=== PATIENT | male | born 1940 | race Two or more races ===

== ENCOUNTER 2016-12-18 03:34 | Emergency (ER) | payer OTHER, BC ==
[2016-12-18 03:52] VITALS: BP 135/76; PULSE 75; TEMP 97.5; BMI 22.4
[2016-12-18] MEDS ORDERED: predniSONE 20 MG TABLET (UD) PO ONE (04:02)
[2016-12-18] MEDS ORDERED: diphenhydrAMINE HCL 25 MG CAPSULE (FP) PO ONE ×2 (04:02→04:08)
--- NOTE | 2016-12-18 04:05 | PDOC ---
History of Present Illness - General Chief Complaint: Rash Stated Complaint: CHEST PAIN Time Seen by Provider: 12/18/16 03:51 Past History - Travel Traveled outside of the country in the last 30 days: No Close contact w/someone who was outside of country & ill: No - Past Medical History Allergies/Adverse Reactions: Allergies Allergy/AdvReac Type Severity Reaction Status Date / Time No Known Allergies Allergy Verified 02/15/15 16:13 Home Medications: Ambulatory Orders Diphenhydramine HCl [Benadryl -] 25 mg PO Q8H PRN #21 capsule 12/18/16 Prednisone [Deltasone -] 40 mg PO DAILY #8 tablet 12/18/16 Thyroid Disease: No (denies) - Suicide/Smoking/Psychosocial Hx Smoking Status: No Smoking History: Never smoked Number of Cigarettes Smoked Daily: 0 Information on smoking cessation initiated: No Hx Alcohol Use: No Drug/Substance Use Hx: No Substance Use Type: None Review of Systems - Review of Systems Able to Perform ROS?: (See resident's note) *Physical Exam - Vital Signs Last Vital Signs Temp Pulse Resp BP Pulse Ox 97.5 F L 75 18 135/76 98 12/18/16 03:45 12/18/16 03:45 12/18/16 03:45 12/18/16 03:45 12/18/16 03:45 - Physical Exam General Appearance: Yes: Appropriately Dressed, Thin HEENT: positive: EOMI, JASPER, Normal ENT Inspection, Normal Voice, Symmetrical, Pharynx Normal Neck: positive: Trachea midline, Supple Respiratory/Chest: positive: Lungs Clear, Normal Breath Sounds Cardiovascular: positive: Regular Rhythm, Regular Rate, S1, S2 Gastrointestinal/Abdominal: positive: Flat, Soft Musculoskeletal: positive: Normal Inspection Extremity: positive: Normal Inspection Integumentary: positive: Hives, Rash ED Treatment Course - LABORATORY CBC & Chemistry Diagram: 12/18/16 04:17 12/18/16 04:17 Medical Decision Making - Medical Decision Making 12/18/16 04:11 Pt comes with hives on his chest. States that it has been ongoing x 2 weeks and that the burning keeps him awake. Pt is upset and irritable. EKG normal. No SOB. Unclear what pt is allergic to. has some bug bites and she is wondering if pt has bug bites. However, he has redness/hives on the right lateral chest beneath the arm. On the central chest and abd he has no raised hives or bites, he has red patches that are macular. Pt will be teated with prednisone and with benadryl and he will go home with the same; keep a food diary; elimination diet; follow with cage loader and his PMD. 12/18/16 04:16 Case d/w resident, Dr. Partida; I agree with his exam and plan. Labs pending. *DC/Admit/Observation/Transfer Diagnosis at time of Disposition: Hives - Discharge Dispostion Disposition: HOME Condition at time of disposition: Improved Admit: No - Prescriptions Prescriptions: Diphenhydramine HCl [Benadryl -] 25 mg PO Q8H PRN #21 capsule PRN Reason: Rash Prednisone [Deltasone -] 40 mg PO DAILY #8 tablet - Referrals Referrals: Junaid White MD [Primary Care Provider] - Eric Carrera MD [Staff Physician] - - Patient Instructions Printed Discharge Instructions: DI for Rash Additional Instructions: Please return to the ER if you experience concerning or worsening symptoms. Please call to schedule a follow up appointment with your primary care provider to discuss your ER visit. We have also provided you a number of an cage loader to call to be evaluated for your rash. We have sent prescriptions for a 4 day course of steroids to your pharmacy as well.
[2016-12-18] MEDS ORDERED: predniSONE 20 MG TABLET (UD) ONE (04:08)
--- NOTE | 2016-12-18 04:09 | PDOC ---
History of Present Illness - General Chief Complaint: Rash Stated Complaint: CHEST PAIN Time Seen by Provider: 12/18/16 03:51 - History of Present Illness Initial Comments: 12/18/16 04:03 The patient is a 76 year old male who denies past medical history who present for evaluation of a rash. The patient reports a red rash over his chest that he describes and very itchy, burning, and painful. He states that it has been intermittent over the past 2 weeks and worse at night. The patient reports waking up with the rash and could not tolerated it prompting his presentation to the ED today for evaluation. The patient denies any changes in his diet or normal routine. He denies fevers, chills, chest pain, abdominal pain, nausea, vomiting, or changes with urination or bowel movements. Past History - Past Medical History Allergies/Adverse Reactions: Allergies Allergy/AdvReac Type Severity Reaction Status Date / Time No Known Allergies Allergy Verified 02/15/15 16:13 Home Medications: Ambulatory Orders Diphenhydramine HCl [Benadryl -] 25 mg PO Q8H PRN #21 capsule 12/18/16 Prednisone [Deltasone -] 40 mg PO DAILY #8 tablet 12/18/16 Thyroid Disease: No (denies) - Suicide/Smoking/Psychosocial Hx Smoking Status: No Smoking History: Never smoked Number of Cigarettes Smoked Daily: 0 Information on smoking cessation initiated: No Hx Alcohol Use: No Drug/Substance Use Hx: No Substance Use Type: None Review of Systems - Review of Systems Comments:: 12/18/16 04:10 Constitutional: No fevers, chills, fatigue, malaise HEENT: No Rhinorrhea, nasal congestion, visual changes Cardiovascular: No chest pain, syncope, palpitations, lightheadedness Respiratory: No Cough, SOB, Hemoptysis, Gastrointestinal: No Abdominal pain, Nausea, Vomiting, Constipation, Diarrhea, Melena Genitourinary: No Dysuria, Frequency, Urgency, Hesitancy, Hematuria, Flank pain Musculoskeletal: No Myalgia, arthralgia Skin: Rash on the chest with itching and burning. No bruising, pallor Neurologic: No Headache, Dizziness, Numbness, Weakness, or Tingling *Physical Exam - Vital Signs Last Vital Signs Temp Pulse Resp BP Pulse Ox 97.5 F L 75 18 135/76 98 12/18/16 03:45 12/18/16 03:45 12/18/16 03:45 12/18/16 03:45 12/18/16 03:45 - Physical Exam Comments: 12/18/16 04:12 General Appearance: Nourished. No Apparent Distress HEENT: EOMI, JASPER. Respiratory/Chest: Lungs Clear, Normal Breath Sounds. No Crackles, Rales, Rhonchi, Wheezing Cardiovascular: Regular Rhythm, Regular Rate. No Murmur, Gallops, Rubs Gastrointestinal/Abdominal: Normal Bowel Sounds, Soft. No Guarding, Rebound, Tenderness Musculoskeletal: No CVA Tenderness Extremity: Normal Capillary Refill Integumentary: Blanching diffuse erythematous rash noted on the chest with occasional hives. Normal Color, Dry, Warm Neurologic: Fully Oriented, Alert, Normal Mood/Affect, Normal Response, ED Treatment Course - LABORATORY CBC & Chemistry Diagram: 12/18/16 04:17 12/18/16 04:17 Medical Decision Making - Medical Decision Making 12/18/16 04:14 The patient is a 76 year old male who denies past medical history who present for evaluation of a rash. Differential includes but is not limited to: Allergic reaction, Ideopathic uritcaria, infectious, metabolic derangement. Given the patient's physical exam of hives, it is likely the patient is experiencing some sort of allergic reaction. It is unclear what the patient is reacting to. We will send a cbc, cmp, esr and ua to evaluate for other etiologies and treat him with benadryl and prednisone. We will continue to monitor and reassess. 12/18/16 04:55 The patient reports significant improvement in his symptoms and is requesting to be discharged. We are comfortable discharging the patient home at this time with PCP follow up. The patient voiced understanding and is agreeable with the plan. *DC/Admit/Observation/Transfer Diagnosis at time of Disposition: Hives - Discharge Dispostion Disposition: HOME Condition at time of disposition: Improved Admit: No - Prescriptions Prescriptions: Diphenhydramine HCl [Benadryl -] 25 mg PO Q8H PRN #21 capsule PRN Reason: Rash Prednisone [Deltasone -] 40 mg PO DAILY #8 tablet - Referrals Referrals: Junaid White MD [Primary Care Provider] - Eric Carrera MD [Staff Physician] - - Patient Instructions Printed Discharge Instructions: DI for Rash Additional Instructions: Please return to the ER if you experience concerning or worsening symptoms. Please call to schedule a follow up appointment with your primary care provider to discuss your ER visit. We have also provided you a number of an regroover to call to be evaluated for your rash. We have sent prescriptions for a 4 day course of steroids to your pharmacy as well.
[2016-12-18 04:25] LABS: BASOPHIL 0.8 % (0-2.0); EOSINOPHIL 4.8 % (0-4.5); MCH 28.6 pg (25.7-33.7); MCHC 33.5 g/dl (32.0-35.9); MEAN CELL VOLUME 85.4 fl (80-96); MEAN PLT VOLUME 7.5 fl (7.5-11.1); NEUTROPHILS 38.5 % (42.8-82.8); PLATELET COUNT 181 K/MM3 (134-434); RDW 14.2 % (11.9-15.9); WHITE BLOOD COUNT 5.2 K/mm3 (4.0-10.0)
[2016-12-18 04:52] LABS: ALBUMIN 3.3 g/dl (3.4-5.0); ALK PHOS 86 U/L (45-117); ANION GAP 9 (8-16); BILIRUBIN,TOTAL 0.5 mg/dL (0.2-1.0); CALCIUM 8.5 mg/dL (8.5-10.1); CO2 29 mmol/L (21-32); CREATININE 0.9 mg/dL (0.7-1.3); GLUCOSE,RANDOM 140 mg/dL (74-106); SGOT/AST 16 U/L (15-37); SGPT/ALT 25 U/L (12-78)
[2016-12-18 05:03] LABS: URINE APPEARANCE CLEAR; URINE BILIRUBIN NEGATIVE (NEGATIVE); URINE BLOOD 1+ (NEGATIVE); URINE COLOR YELLOW; URINE GLUCOSE (UA) NEGATIVE (NEGATIVE); URINE KETONE TRACE (NEGATIVE); URINE NITRITE NEGATIVE (NEGATIVE); URINE PROTEIN NEGATIVE (NEGATIVE); URINE UROBILINOGEN NEGATIVE mg/dL (0.2-1.0)
[2016-12-18 05:36] LABS: URINE MUCUS RARE; URINE RBC <1 /hpf (0-3)
[2016-12-18 08:12] LABS: URINE WBC <1 /hpf (3-5)
[2016-12-18 09:06] LABS: URINE LEUK ESTERASE Negative (NEGATIVE)
--- NOTE | 2016-12-18 09:59 | EKG ---
Test Reason : Blood Pressure : / mmHG Vent. Rate : 076 BPM Atrial Rate : 076 BPM P-R Int : 212 ms QRS Dur : 088 ms QT Int : 372 ms P-R-T Axes : 086 076 073 degrees QTc Int : 418 ms SINUS RHYTHM WITH 1ST DEGREE A-V BLOCK WITH PREMATURE SUPRAVENTRICULAR COMPLEXES OTHERWISE NORMAL ECG WHEN COMPARED WITH ECG OF 15-FEB-2015 15:24, PREMATURE SUPRAVENTRICULAR COMPLEXES ARE NOW PRESENT Confirmed by MAGDA GÓMEZ, DAYAN ([id number]) on 12/18/2016 9:59:16 AM Referred By: Confirmed By:DAYAN MAN MD
== END 2016-12-18 04:56 | disposition home or self-care (01) ==
LOC: JER 03:34
DX: L50.0 Allergic urticaria (principal)
CPT/HCPCS: 36415; 80053; 81003; 81015; 85025; 85651; 93005; 93010; 99282-25

== ENCOUNTER 2017-08-03 13:31 | Emergency (ER) | payer OTHER, BC ==
[2017-08-03 13:38] VITALS: BP 145/74; PULSE 100; TEMP 97.8; BMI 18.8
--- NOTE | 2017-08-03 14:10 | PDOC ---
History of Present Illness - General Chief Complaint: Rash Stated Complaint: RASH Time Seen by Provider: 08/03/17 13:45 History Source: Patient Exam Limitations: No Limitations - History of Present Illness Initial Comments: 08/03/17 14:05 This 77-year-old male presents emergency departments with rash to the volar aspects of bilateral wrists status post gardening 7 days ago. Patient states he was cutting down multiple bushes and believes poison lynn was in some of the vegetation he was cutting down. states she's had this pruritic rash ever since that time. He denies any fevers, chills or streaking from the rash. Past History - Past Medical History Allergies/Adverse Reactions: Allergies Allergy/AdvReac Type Severity Reaction Status Date / Time No Known Allergies Allergy Verified 08/03/17 13:34 Home Medications: Ambulatory Orders NK [No Known Home Medication] 08/03/17 COPD: No Thyroid Disease: No (denies) - Suicide/Smoking/Psychosocial Hx Smoking Status: No Smoking History: Never smoked Number of Cigarettes Smoked Daily: 0 Hx Alcohol Use: No Drug/Substance Use Hx: No Substance Use Type: None Review of Systems - Review of Systems Able to Perform ROS?: Yes Is the patient limited Czech proficient: No Constitutional: No: Symptoms Reported HEENTM: No: Symptoms Reported Respiratory: No: Symptoms reported Cardiac (ROS): No: Symptoms Reported ABD/GI: No: Symptoms Reported : No: Symptoms Reported Musculoskeletal: No: Symptoms Reported Integumentary: Yes: See HPI Neurological: No: Symptoms reported Endocrine: No: Symptoms Reported *Physical Exam - Vital Signs Last Vital Signs Temp Pulse Resp BP Pulse Ox 97.8 F 100 H 18 145/74 98 08/03/17 13:33 08/03/17 13:33 08/03/17 13:33 08/03/17 13:33 08/03/17 13:33 - Physical Exam Integumentary: positive: Rash (Erythematous pruritic vesicular rash noted to volar aspects of bilateral wrists. No streaking noted from rash) Medical Decision Making - Medical Decision Making 08/03/17 14:11 A/P: 77-year-old male with pruritic rash to bilateral volar wrists Pruritic erythematous vesicular rash noted to bilateral volar wrists No streaking is present Area is not warm to the touch Patient with Toxicodendron dermatitis I will discharge the patient home with [id number] symptomatically treatment. Patient is to follow-up with his primary doctor should symptoms continue *DC/Admit/Observation/Transfer Diagnosis at time of Disposition: Toxicodendron dermatitis - Discharge Dispostion Disposition: HOME Condition at time of disposition: Stable Decision to Admit order: No - Referrals Referrals: Junaid Loera MD [Primary Care Provider] - - Patient Instructions Printed Discharge Instructions: DI for Poison Lynn Allergy Additional Instructions: Place one cup of raw unflavored oats into a professional bondsman food safety coordinator bearing grinder. Blend the oats into a fine powdered texture. Take these particles spread throughout bathwater Stir Until the oatmeal is thoroughly blended into the water. Soak for 15-30 minutes. Apply calamine lotion to affected areas to help relieve itching. You may take Benadryl 25 mg every 8 hours as needed for itching Return to emergency department for any worsening itching, fevers or any other concerns. Thank you very much for choosing us to provide for emergent health care needs. - Post Discharge Activity
== END 2017-08-03 14:28 | disposition home or self-care (01) ==
LOC: JERFT 13:31
DX: L30.8 Other specified dermatitis (principal)
CPT/HCPCS: 99281-25

== ENCOUNTER 2020-04-22 04:46 | Day surgery (SDC) | payer OTHER, BC ==
[2020-04-20 16:15] VITALS: BMI 18.8
[2020-04-22 10:54] VITALS: BP 110/69; PULSE 65
[2020-04-22 16:18] VITALS: TEMP 97.3
== END 2020-04-22 11:03 | disposition home or self-care (01) ==
LOC: JASU-ENDO 04:46
PROVIDERS: ATTEND Internal Medicine Gastroenterology
PROC: 0DJD8ZZ Inspection of Lower Intestinal Tract, Via Natural or Artificial Opening Endoscopic (ICD-10-PCS; principal; 2020-04-22 09:30)
DX: Z86.010 Personal history of colon polyps (principal); Z12.11 Encounter for screening for malignant neoplasm of colon; K59.89 Other specified functional intestinal disorders